=== PATIENT | male | born 1975 | race Caucasian/White ===

== ENCOUNTER 2021-02-23 11:24 | Inpatient (IN) | payer SELFPAY ==
[2021-02-23] VITALS (9 sets, daily range): BP systolic 113–147; BP diastolic 62–76
[~2021-02-23] VITALS: Ht 185 cm; Wt 101.0 kg
--- NOTE | 2021-02-23 11:55 | ED Abdominal Pain ---
General Stated Complaint: R SIDE ABD PAIN Source of Information: Patient Exam Limitations: No Limitations History of Present Illness Date Seen by Provider: Feb 23, 2021 Time Seen by Provider: 11:42 Initial Comments Patient is a 45-year-old male who presents to the emergency department with a chief complaint of epigastric abdominal pain starting Saturday of this week that is slowly radiated down into the right lower quadrant. Patient endorses some occasional chills, decreased appetite. He states he has not really had much to eat since Saturday. Thinks he is lost about 10 pounds. He states over the last 4 days his urine has become very dark and "stinky". No back pain. Patient states any type of movement tends to increase his pain. At rest he rates it at about a 6 or a 7". He states he has not taken anything for the pain such as hhji-ghh-bafsdoj Advil, Tylenol or aspirin. He is a little bit nauseous. Denies any troubles with bowel or bladder, no dysuria, urgency or frequency, no diarrhea, black or bloody stools. He has had no prior abdominal surgeries. All other review of systems reviewed and negative except as stated. Timing/Duration: 3-4 Days Severity/Quality: Severe, Aching Location: Epigastric Radiation: RLQ Associated Symptoms: Fever/Chills (Chills without known fever), Nausea/Vomiting (Nausea) Allergies and Home Medications Allergies Coded Allergies: Penicillins (Verified Allergy, Unknown, 02/23/21) Patient Home Medication List Home Medication List Reviewed: Yes Review of Systems Review of Systems Constitutional: see HPI EENTM: No Symptoms Reported Respiratory: No Symptoms Reported Cardiovascular: No Symptoms Reported Gastrointestinal: Abdominal Pain, Nausea, Poor Appetite Genitourinary: Other (Darker than normal urine) Musculoskeletal: no symptoms reported Skin: no symptoms reported Psychiatric/Neurological: No Symptoms Reported All Other Systems Reviewed Negative Unless Noted: Yes Physical Exam Vital Signs Vital Signs - First Documented 02/23/21 11:43 Temp 36.2 Pulse 100 Resp 18 B/P (MAP) 129/83 (98) Pulse Ox 97 Capillary Refill : Height/Weight/BMI Height: '" Weight: lbs. oz. kg; BMI Method: General Appearance: WD/WN, no apparent distress HEENT: PERRL/EOMI Respiratory: lungs clear, normal breath sounds, no respiratory distress, no accessory muscle use Cardiovascular: regular rate, rhythm, no murmur Gastrointestinal: abnormal bowel sounds (Hypoactive), distended (Mildly distended), guarding (Involuntary guarding), rebound (Right lower quadrant), tenderness (Right lower quadrant), other (Equivocal Rovsing sign) Extremities: non-tender, normal inspection, no pedal edema Neurologic/Psychiatric: alert, normal mood/affect, oriented x 3 Skin: normal color, warm/dry Progress/Results/Core Measures Results/Orders Lab Results Laboratory Tests Test 02/23/21 11:55 Range/Units White Blood Count 21.8 H 4.3-11.0 10^3/uL Red Blood Count 5.44 4.30-5.52 10^6/uL Hemoglobin 15.7 13.3-17.7 g/dL Hematocrit 48 40-54 % Mean Corpuscular Volume 88 80-99 fL Mean Corpuscular Hemoglobin 29 25-34 pg Mean Corpuscular Hemoglobin Concent 33 32-36 g/dL Red Cell Distribution Width 12.8 10.0-14.5 % Platelet Count 280 130-400 10^3/uL Mean Platelet Volume 9.9 9.0-12.2 fL Immature Granulocyte % (Auto) 1 % Neutrophils (%) (Auto) 72 42-75 % Lymphocytes (%) (Auto) 19 12-44 % Monocytes (%) (Auto) 8 0-12 % Eosinophils (%) (Auto) 0 0-10 % Basophils (%) (Auto) 0 0-10 % Neutrophils # (Auto) 15.6 H 1.8-7.8 10^3/uL Lymphocytes # (Auto) 4.0 1.0-4.0 10^3/uL Monocytes # (Auto) 1.8 H 0.0-1.0 10^3/uL Eosinophils # (Auto) 0.0 0.0-0.3 10^3/uL Basophils # (Auto) 0.1 0.0-0.1 10^3/uL Immature Granulocyte # (Auto) 0.3 H 0.0-0.1 10^3/uL Neutrophils % (Manual) 68 % Lymphocytes % (Manual) 21 % Monocytes % (Manual) 9 % Band Neutrophils 2 % Blood Morphology Comment NORMAL Sodium Level 133 L 135-145 MMOL/L Potassium Level 3.9 3.6-5.0 MMOL/L Chloride Level 97 L 98-107 MMOL/L Carbon Dioxide Level 27 21-32 MMOL/L Anion Gap 9 5-14 MMOL/L Blood Urea Nitrogen 14 7-18 MG/DL Creatinine 0.99 0.60-1.30 MG/DL Estimat Glomerular Filtration Rate 82 BUN/Creatinine Ratio 14 Glucose Level 134 H 70-105 MG/DL Calcium Level 10.2 H 8.5-10.1 MG/DL Corrected Calcium 10.2 H 8.5-10.1 MG/DL Total Bilirubin 1.3 H 0.1-1.0 MG/DL Aspartate Amino Transf (AST/SGOT) 18 5-34 U/L Alanine Aminotransferase (ALT/SGPT) 31 0-55 U/L Alkaline Phosphatase 127 40-136 U/L Total Protein 8.0 6.4-8.2 GM/DL Albumin 4.0 3.2-4.5 GM/DL My Orders Orders - CARMEN MARTINEZ MD Ed Iv/Invasive Line Start (02/23/21 11:51) Cbc With Automated Diff (02/23/21 11:51) Comprehensive Metabolic Panel (02/23/21 11:51) Ua Culture If Indicated (02/23/21 11:51) Fentanyl Inj (Sublimaze Injection) (02/23/21 12:00) Ondansetron Injection (Zofran Injectio (02/23/21 12:00) Ns Iv 1000 Ml (Sodium Chloride 0.9%) (02/23/21 12:00) Nothing By Mouth (02/23/21 Lunch) Ct Abdomen/Pelvis Wo (02/23/21 11:55) Manual Differential (02/23/21 11:55) Medications Given in ED Current Medications Medications Dose Ordered Sig/Sarah Route Start Time Stop Time Status Last Admin Dose Admin Fentanyl Citrate 50 mcg ONCE ONCE IVP 02/23/21 12:00 02/23/21 12:01 DC 02/23/21 12:04 50 MCG Ondansetron HCl 4 mg ONCE ONCE IVP 02/23/21 12:00 02/23/21 12:01 DC 02/23/21 12:05 4 MG Vital Signs/I&O 02/23/21 11:43 Temp 36.2 Pulse 100 Resp 18 B/P (MAP) 129/83 (98) Pulse Ox 97 Diagnostic Imaging Diagonstic Imaging: CT Comments [facility] [place], [place] NAME: HILL VALDOVINOS [facility] REC#: [id number] PT STATUS: REG ER : 1975 PHYSICIAN: CARMEN MARTINEZ MD ADMIT DATE: 02/23/21/ER Draft Date of Exam:02/23/21 CT ABDOMEN/PELVIS WO PROCEDURE: CT abdomen and pelvis without contrast. TECHNIQUE: Multiple contiguous axial images were obtained through the abdomen and pelvis without the use of intravenous contrast. Auto Exposure Controls were utilized during the CT exam to meet ALARA standards for radiation dose reduction. INDICATION: Abdominal pain. FINDINGS: No focal hepatic, pancreatic, adrenal gland, renal, or splenic abnormality is identified. There are multiple stones within the lumen of the gallbladder residing in the neck region without evidence of gallbladder wall thickening or pericholecystic fluid. There is extensive inflammation surrounding the enlarged appendix in the right lower quadrant. Hyperdense focus within the proximal appendix likely represents an appendicolith. There is no evidence of walled fluid collection to indicate an organized abscess. Otherwise, there is no free fluid within the abdomen or pelvis. Urinary bladder is unremarkable. IMPRESSION: 1. Acute appendicitis with significant periappendiceal inflammation. No organized abscess is detected. 2. Note is made of cholecystolithiasis without evidence of inflammation of the gallbladder. Dictated on workstation # [id number] Dict: 02/23/21 1246 Trans: 02/23/21 1253 [id number] Interpreted by: KEZIA ELKINS MD Electronically signed by: Departure Communication (Admissions) Time/Spoke to Admitting Phy: 13:[address] Rosario - will be down to see in a few minutes. Advised Clinda and flagyl Impression Primary Impression: Acute appendicitis Qualified Codes: K35.30 - Acute appendicitis with localized peritonitis, without perforation or gangrene Disposition: ADMITTED INPATIENT Condition: Stable Admissions Decision to Admit Reason: Admit from ER (General) Decision to Admit/Date: Feb 23, 2021 Time/Decision to Admit Time: 13:11 Departure-Patient Inst. Referrals: NO,LOCAL PHYSICIAN (PCP/Family) Primary Care Physician CARMEN MARTINEZ MD Feb 23, 2021 11:55
[2021-02-23] MEDS ORDERED: fentaNYL INJ 100 MCG/2 ML AMP IVP ONE (12:00)
[2021-02-23] MEDS ORDERED: ONDANSETRON 4 MG/2 ML (SDV) Z0FRAN IVP ONE (12:00)
[2021-02-23] MEDS ORDERED: NS IV 1000 ML 1,000 ML IV SCH ×2 (12:00→13:15)
[2021-02-23 12:04] LABS: BASOPHILS # (AUTO) 0.1 10^3/uL (0.0-0.1); BASOPHILS % (AUTO) 0 % (0-10); EOSINOPHILS % (AUTO) 0 % (0-10); HEMATOCRIT 48 % (40-54); HEMOGLOBIN 15.7 g/dL (13.3-17.7); LYMPHOCYTES % (AUTO) 19 % (12-44); MEAN CORPUSCULAR HEMOGLOBIN 29 pg (25-34); MEAN CORPUSCULAR HGB CONC 33 g/dL (32-36); MEAN CORPUSCULAR VOLUME 88 fL (80-99); MEAN PLATELET VOLUME 9.9 fL (9.0-12.2); MONOCYTES # (AUTO) 1.8 10^3/uL (0.0-1.0); MONOCYTES % (AUTO) 8 % (0-12); NEUTROPHILS # (AUTO) 15.6 10^3/uL (1.8-7.8); NEUTROPHILS % (AUTO) 72 % (42-75); PLATELET COUNT 280 10^3/uL (130-400); WHITE BLOOD COUNT 21.8 10^3/uL (4.3-11.0)
[2021-02-23 12:13] LABS: BAND NEUTROPHILS 2 %; LYMPHOCYTES % (MANUAL) 21 %; MONOCYTES % (MANUAL) 9 %; NEUTROPHILS % (MANUAL) 68 %; RBC MORPH NORMAL
[2021-02-23 12:15] LABS: POTASSIUM 3.9 MMOL/L (3.6-5.0)
[2021-02-23 12:16] LABS: CALCIUM 10.2 MG/DL (8.5-10.1)
[2021-02-23 12:19] LABS: BILIRUBIN,TOTAL 1.3 MG/DL (0.1-1.0)
[2021-02-23 12:20] LABS: CREATININE SERUM 0.99 MG/DL (0.60-1.30)
--- NOTE | 2021-02-23 12:53 | Diagnostic Imaging Report ---
PROCEDURE: CT abdomen and pelvis without contrast. TECHNIQUE: Multiple contiguous axial images were obtained through the abdomen and pelvis without the use of intravenous contrast. Auto Exposure Controls were utilized during the CT exam to meet ALARA standards for radiation dose reduction. INDICATION: Abdominal pain. FINDINGS: No focal hepatic, pancreatic, adrenal gland, renal, or splenic abnormality is identified. There are multiple stones within the lumen of the gallbladder residing in the neck region without evidence of gallbladder wall thickening or pericholecystic fluid. There is extensive inflammation surrounding the enlarged appendix in the right lower quadrant. Hyperdense focus within the proximal appendix likely represents an appendicolith. There is no evidence of walled fluid collection to indicate an organized abscess. Otherwise, there is no free fluid within the abdomen or pelvis. Urinary bladder is unremarkable. IMPRESSION: 1. Acute appendicitis with significant periappendiceal inflammation. No organized abscess is detected. 2. Note is made of cholecystolithiasis without evidence of inflammation of the gallbladder. Dictated by: Dictated on workstation # [id number]
[2021-02-23] MEDS ORDERED: MIDAZOLAM 2 MG/2 ML (VERSED) VIAL ONE (13:29)
[2021-02-23] MEDS ORDERED: ONDANSETRON 4 MG/2 ML (SDV) Z0FRAN ONE (13:29)
[2021-02-23] MEDS ORDERED: SEVOFLURANE (ULTANE) 15 ML INHAL SOLN ONE ×2 (13:29→15:55)
[2021-02-23] MEDS ORDERED: ROCURONIUM 10 MG/ML 5 ML SYRINGE IV ONE (13:29)
[2021-02-23] MEDS: CLINDAMYCIN 600 MG/50 ML IVPB 50 ML IV ONE (13:29)
[2021-02-23] MEDS ORDERED: proPOfol 200 MG/20 ML (DIPRIVAN) VIAL IV ONE (13:29)
[2021-02-23] MEDS ORDERED: LIDOCAINE PF 2% 5 ML (XYLOCAINE) VIAL ONE (13:29)
[2021-02-23] MEDS ORDERED: fentaNYL INJ 100 MCG/2 ML AMP ONE ×2 (13:29→16:12)
[2021-02-23] MEDS: metroNIDAZOLE 500MG/100ML IVPB 100 ML IV ONE (13:30)
--- NOTE | 2021-02-23 13:35 | History & Physical-Surgical ---
History of Present Illness History of Present Illness Reason for visit/HPI CC: RLQ Abd pain. Seen and evaluated in ED. Patient is a 45 year old male with right lower quadrant abdominal pain. It started 4 days ago with periumbilical abdominal pain and then migrated 4 days ago. Patient moderate pain. No radiation. + nausea and hot flashes. Patient lost appetite. Movement makes worse. Laying on left side better. Had ct scan showing acute appendicitis, no per foration and has gallstones. Date of Admission T Date Seen by a Provider: Feb 23, 2021 Time Seen by a Provider: 13:32 I consulted on this patient on 02/23/21 13:30 Attending Physician Lyla Rosario DO Admitting Physician No,Local Physician Consult Allergies and Home Medications Allergies Coded Allergies: Penicillins (Verified Allergy, Unknown, 02/23/21) Patient Home Medication List Home Medication List Reviewed: Yes Past Sggwsxl-Zyskdl-[id number] Hx Patient Social History Smoking Status: Current Someday Smoker Type Used: Cigarettes Alcohol Use?: No Have you traveled recently?: No Surgeries History of Surgeries: No Respiratory History of Respiratory Disorde: No Cardiovascular History of Cardiac Disorders: No Neurological History of Neurological Disord: No Genitourinary History of Genitourinary Disor: No Gastrointestinal History of Gastrointestinal Di: No Musculoskeletal History of Musculoskeletal Dis: No Endocrine History of Endocrine Disorders: No HEENT History of HEENT Disorders: No Family Medical History Significant Family History: No Pertinent Family Hx Review of Systems Constitutional: chills, weakness EENTM: No blurred vision, No double vision Respiratory: No cough, No dyspnea on exertion Cardiovascular: No chest pain, No palpitations Gastrointestinal: abdominal pain (RLQ), nausea, vomiting Genitourinary: No decreased output, No discharge Musculoskeletal: No back pain, No joint pain Skin: No change in color, No change in hair/nails Psychiatric/Neurological: Denies Anxiety, Denies Depressed, Denies Emotional Pr oblems All Other Systems Reviewed Negative Unless Noted: Yes (Negative excepted noted.) Physical Exam Vital Signs Vital Signs - First Documented 02/23/21 11:43 Temp 36.2 Pulse 100 Resp 18 B/P (MAP) 129/83 (98) Pulse Ox 97 Capillary Refill : Less Than 3 Seconds Height, Weight, BMI Height: '" Weight: lbs. oz. kg; 29.00 BMI Method: General Appearance: No Apparent Distress (laying still in bed) HEENT: PERRL/EOMI, TMs Normal, Normal ENT Inspection Neck: Normal Inspection, Non Tender Respiratory: Chest Non Tender, No Accessory Muscle Use, No Respiratory Distress Cardiovascular: Regular Rate, Rhythm, No JVD Gastrointestinal: No Organomegaly; No Guarding; Tenderness (rlq) Rectal: Deferred Back: Normal Inspection, No CVA Tenderness Extremity: Non Tender, No Calf Tenderness Neurologic/Psychiatric: Alert, Oriented x3, No Motor/Sensory Deficits Skin: Normal Color, Warm/Dry Lymphatic: No Adenopathy Data Review Labs Laboratory Tests 02/23/21 11:55: White Blood Count 21.8H, Red Blood Count 5.44, Hemoglobin 15.7, Hematocrit 48, Mean Corpuscular Volume 88, Mean Corpuscular Hemoglobin 29, Mean Corpuscular Hemoglobin Concent 33, Red Cell Distribution Width 12.8, Platelet Count 280, Mean Platelet Volume 9.9, Immature Granulocyte % (Auto) 1, Neutrophils (%) (Auto) 72, Lymphocytes (%) (Auto) 19, Monocytes (%) (Auto) 8, Eosinophils (%) (Auto) 0, Basophils (%) (Auto) 0, Neutrophils # (Auto) 15.6H, Lymphocytes # (Auto) 4.0, Monocytes # (Auto) 1.8H, Eosinophils # (Auto) 0.0, Basophils # (Auto) 0.1, Immature Granulocyte # (Auto) 0.3H, Neutrophils % (Manual) 68, Lymphocytes % (Manual) 21, Monocytes % (Manual) 9, Band Neutrophils 2, Blood Morphology Comment NORMAL, Sodium Level 133L, Potassium Level 3.9, Chloride Level 97L, Carbon Dioxide Level 27, Anion Gap 9, Blood Urea Nitrogen 14, Creatinine 0.99, Estimat Glomerular Filtration Rate 82, BUN/Creatinine Ratio 14, Glucose Level 134H, Calcium Level 10.2H, Corrected Calcium 10.2H, Total Bilirubin 1.3H, Aspartate Amino Transf (AST/SGOT) 18, Alanine Aminotransferase (ALT/SGPT) 31, Alkaline Phosphatase 127, Total Protein 8.0, Albumin 4.0 Assessment/Plan Assessment/Plan Admission Diagonsis rlq abd pain nausea acute appendicitis gallstones Admission Status: Other (Same Day Surgery) Assessment/Plan rlq abd pain nausea acute appendicitis gallstones discussed risks and benefits of laparoscopic appendectomy all other indicated procedures and wishes to proceed. to or Clindamycin/Flagyl NPO IV hydratino. LYLA ROSARIO DO Feb 23, 2021 13:35
[2021-02-23 13:43] LABS: CLARITY,URINE CLEAR; COLOR,URINE YELLOW; GLUCOSE, URINE (UA) TRACE (NEGATIVE); KETONES,URINE NEGATIVE (NEGATIVE); LEUKOCYTE ESTERASE ,URINE NEGATIVE (NEGATIVE); NITRITE,URINE NEGATIVE (NEGATIVE); PROTEIN,URINE 1+ (NEGATIVE)
[2021-02-23] MEDS ORDERED: LIDOCAINE/EPI 1%-1:100,000 (XYLOCAINE) 20ML ONE (14:04)
[2021-02-23] MEDS: LACTATED RINGERS 1,000 ML IV PRN ×2 (14:09→15:09)
[2021-02-23 14:28] LABS: BILIRUBIN,URINE 2+ (NEGATIVE)
[2021-02-23 14:29] LABS: BACTERIA,URINE TRACE /HPF; WBC,URINE 0-2 /HPF
[2021-02-23 14:30] LABS: AMORPHOUS SEDIMENT,UR FEW AMOR URATES /LPF
[2021-02-23] MEDS ORDERED: GLYCOPYRROLATE 0.2 MG/ML (ROBINUL) 2 ML VIAL ONE (16:19)
[2021-02-23] MEDS ORDERED: NEOSTIGMINE 3 MG/3 ML VIAL ONE (16:19)
[2021-02-23] MEDS ORDERED: morphine INJ 10 MG/ML 1ML (SYR OR VIAL) IVP ONE (16:30)
[2021-02-23] MEDS ORDERED: ONDANSETRON 4 MG/2 ML (SDV) Z0FRAN IVP PRN (16:30)
[2021-02-23] MEDS ORDERED: MEPERIDINE (DEMEROL) INJ 50 MG/ML IVP ONE (16:30)
--- NOTE | 2021-02-23 16:31 | Anesthesia-General Post-Op ---
General Patient Condition Mental Status/LOC: Same as Preop Cardiovascular: Satisfactory Nausea/Vomiting: Absent Respiratory: Satisfactory Pain: Controlled Complications: Absent Post Op Complications Complications None Follow Up Care/Instructions Patient Instructions None needed. Anesthesia/Patient Condition Patient Condition Patient is doing well, no complaints, stable vital signs, no apparent adverse anesthesia problems. No complications reported per nursing. SUE DELACRUZ CRNA Feb 23, 2021 16:31
[2021-02-23] MEDS ORDERED: morphine INJ 4 MG/ML 1 ML (VIAL/SYRINGE) IVP PRN (17:00)
--- NOTE | 2021-02-23 17:11 | Progress Note-Post Operative ---
Post-Operative Progess Note Surgeon (s)/Church History Professor (s) Surgeon LYLA HERNANDEZ DO Church History Professor: na Pre-Operative Diagnosis acute appendicitis Post-Operative Diagnosis perforated appendicitis Procedure & Operative Findings Date of Procedure 02/23/21 Procedure Performed/Findings PROCEDURE: Laparoscopic appendectomy. COMPLICATIONS: None. INDICATIONS: The patient is a 45 year old male who has been having right lower quadrant abdominal pain. Patient's exam consistent with appendicitis. I discussed risk and benefits of laparoscopic appendectomy and all indicated procedures with the possibility being a normal appendix. The patient understands the risks and benefits and wishes to proceed. Consent was signed on the chart. DESCRIPTION OF PROCEDURE: The patient was taken to the operating suite, prepped and draped in a sterile fashion. Timeout was performed. Local anesthetic was infiltrated just above the umbilicus and 11-blade scalpel was used to make a skin incision. Cautery was used to dissect down to the fascia and scored. Kochers were used to grasp and elevate it and the abdomen was then entered. A 0 Vicryl was placed in a uiirvl-[id number]-gdfep fashion for closure at the end of the case. The balloon trocar was inserted into the abdomen and pneumoperitoneum was achieved. Under direct visualization of the laparoscope, a 5 mm trocar was placed in the suprapubic region and a 5 mm trocar was placed in the left lower quadrant. Appendix was located, Large phegmon inflammed and perforated appendix. The appendix was signicantly adhered to surrounding tissues. As being lifted, a walled off collection of purulent material erupted. Area was irrigated and suctioned. The appendix was then slowly dissected out of phlegmon using blunt and ligasure dissection. Area of perforation was were an appendicolith was present. The base of the appendix was dissected around. The suprapubic port was converted to a 12 mm trocar. Once at the base an Endo- JAN 2.5 stapler was then fired across the base of the appendix. The mesoappendix was then divided the rest of the way with ligasure. It was then placed in an Endobag and removed through the 12 mm trocar site. The abdomen was then irrigated and suctioned. No other pathology noted. A 19 piotr drain was placed in the abdomen at cecum and right gutter. Brought out through the suprapubic port and secured with 3-0 vicryl suture. The abdomen was then desufflated and the trocars were removed. The 0 Vicryl placed at the beginning of the case was then tied closing the 12 mm fascial defect. The skin was then closed using 4-0 Monocryl in a subcuticular fashion. The abdomen was then washed and dried and Skin Affix was placed over the incisions. The patient tolerated the procedure well without any complications and was taken to the recovery room in stable condition. Anesthesia Type general Estimated Blood Loss Estimated blood loss (mL): minimal Specimens/Packing Specimens Removed appendix LYLA HERNANDEZ DO Feb 23, 2021 17:11
[2021-02-23] MEDS: LACTATED RINGERS 1,000 ML IV SCH ×2 (17:19→21:11)
[2021-02-23] MEDS ORDERED: CATHETER FLUSH 10 ML SYR IV PRN (17:45)
[2021-02-23] MEDS: HYDROcodone/APAP 5 MG/325 MG (LORTAB) TAB PO PRN ×2 (17:48→21:57)
[2021-02-23] MEDS: CIPROFLOXACIN IV 400MG/200ML 200 ML IV SCH (21:57)
[2021-02-23] MEDS: metroNIDAZOLE 500MG/100ML IVPB 100 ML IV SCH (23:24)
[2021-02-24 03:52] VITALS: BP 113/73
[2021-02-24] MEDS: LACTATED RINGERS 1,000 ML IV SCH ×3 (06:20→17:51)
[2021-02-24] MEDS: metroNIDAZOLE 500MG/100ML IVPB 100 ML IV SCH ×3 (06:20→21:11)
[2021-02-24 07:20] VITALS: BP 117/65
[2021-02-24] MEDS: CIPROFLOXACIN IV 400MG/200ML 200 ML IV SCH ×2 (08:47→21:11)
[2021-02-24] MEDS: CLINDAMYCIN 600 MG/50 ML IVPB 50 ML IV ONE (11:14)
[2021-02-24] MEDS: metroNIDAZOLE 500MG/100ML IVPB 100 ML IV ONE (11:15)
[2021-02-24 11:20] VITALS: BP 141/82
--- NOTE | 2021-02-24 14:19 | Progress Note - Surgery ---
EMILI ESQUIVEL 02/24/21 1419: Subjective Date Seen by a Provider: Feb 24, 2021 Time Seen by a Provider: 07:00 Subjective/Events-last exam Patient feels well this morning following his appendectomy yesterday. He reports no nausea/vomiting, no sweats/chills, no uncontrolled abdominal pain and no pain with urination. He has not had a bowel movement post-op. Objective Exam Vital Signs Date Time Temp Pulse Resp B/P (MAP) Pulse Ox O2 Delivery O2 Flow Rate FiO2 02/24/21 09:00 Nasal Cannula 2.00 02/24/21 07:20 36.4 78 18 117/65 (82) 94 Room Air 02/24/21 03:52 37.0 76 18 113/73 (86) 91 Room Air 02/23/21 23:27 37.2 86 18 121/71 (88) 93 Nasal Cannula 2.00 02/23/21 21:00 Nasal Cannula 2.00 02/23/21 20:40 37.1 83 20 116/62 (80) 95 Nasal Cannula 2.00 02/23/21 19:32 Nasal Cannula 2.00 02/23/21 18:08 Nasal Cannula 2.00 02/23/21 17:41 36.6 79 22 135/65 (88) 94 Nasal Cannula 2.00 02/23/21 17:10 Nasal Cannula 2 02/23/21 17:10 36.4 18 115/72 (86) 95 Nasal Cannula 2 02/23/21 17:02 Nasal Cannula 2 02/23/21 17:00 18 128/76 (93) 94 Nasal Cannula 2 02/23/21 16:54 Nasal Cannula 2 02/23/21 16:51 OxyMask 3 02/23/21 16:50 18 113/68 (83) 94 OxyMask 3 02/23/21 16:46 OxyMask 3 02/23/21 16:40 18 147/75 (99) 100 OxyMask 6 02/23/21 16:36 OxyMask 6 02/23/21 16:30 18 129/68 (88) 99 OxyMask 6 02/23/21 16:25 36.2 16 129/66 (87) 97 OxyMask 6 02/23/21 16:25 OxyMask 6 02/23/21 14:25 36.2 100 18 129/83 97 I & O 02/24/21 07:00 Intake Total 3230 ml Output Total 2300 ml Balance 930 ml Capillary Refill : Less Than 3 Seconds General Appearance: No Apparent Distress (laying still in bed) HEENT: PERRL/EOMI Neck: Normal Inspection, Non Tender Respiratory: Chest Non Tender, No Accessory Muscle Use, No Respiratory Distress Cardiovascular: Regular Rate, Rhythm, No JVD Gastrointestinal: non tender, soft, other (Equivocal Rovsing sign) Extremity: Non Tender, No Calf Tenderness Neurologic/Psychiatric: Alert, Oriented x3, No Motor/Sensory Deficits Skin: Normal Color, Warm/Dry Lymphatic: No Adenopathy Assessment/Plan Assessment/Plan Assessment/Plan rlq abd pain nausea acute appendicitis gallstones 02/24 Status post-op appendectomy for ruptured appendicitis Clear liquids only. LYLA ROSARIO DO 02/24/21 1549: Subjective Subjective/Events-last exam Tolerating liquds. Using IS some. Pain controlled. Passing flatus. Drain serous/murky. Denies fever sweats chills shortness of breath or chest pain. On clears. Objective Exam General Appearance: No Apparent Distress (laying still in bed) HEENT: PERRL/EOMI Neck: Normal Inspection, Non Tender Respiratory: Chest Non Tender, No Accessory Muscle Use, No Respiratory Distress Cardiovascular: Regular Rate, Rhythm, No JVD Gastrointestinal: distended (mild) Extremity: Non Tender, No Calf Tenderness Neurologic/Psychiatric: Alert, Oriented x3, No Motor/Sensory Deficits Skin: Normal Color, Warm/Dry Lymphatic: No Adenopathy Assessment/Plan Assessment/Plan Assessment/Plan rlq abd pain nausea acute appendicitis gallstones Status post-op appendectomy for ruptured appendicitis with drain placement On cipro/flagyl Clear liquids Instructed to use IS 10 x per hr repeat labs in am ambulate tid scd's for dvt prophylaxis Supervisory-Addendum Brief Verification & Attestation Participated in pt care: history, MDM, physical Personally performed: exam, history, MDM, supervision of care Care discussed with: Medical Student Procedures: n/a Results interpretation: Verified all documentation Verification and Attestation of Medical Student E/M Service A medical student performed and documented this service in my presence. I rev iewed and verified all information documented by the medical student and made modifications to such information, when appropriate. I personally performed the physical exam and medical decision making. Lyla Rosario, Feb 24, 2021,15:49 EMILI ESQUIVEL Feb 24, 2021 14:19 LYLA ROSARIO DO Feb 24, 2021 15:49
[2021-02-24 16:00] VITALS: BP 156/76
[2021-02-24] MEDS: HYDROcodone/APAP 5 MG/325 MG (LORTAB) TAB PO PRN ×3 (16:49→21:10)
[2021-02-24 19:46] VITALS: BP 172/92
[2021-02-24 23:24] VITALS: BP 149/85
[2021-02-25] MEDS: ONDANSETRON 4 MG/2 ML (SDV) Z0FRAN IVP PRN ×2 (01:33→05:04)
[2021-02-25 03:16] VITALS: BP 137/80
[2021-02-25] MEDS: metroNIDAZOLE 500MG/100ML IVPB 100 ML IV SCH ×3 (05:05→21:33)
[2021-02-25 06:27] LABS: HEMATOCRIT 46 % (40-54); MEAN CORPUSCULAR HEMOGLOBIN 29 pg (25-34); MEAN CORPUSCULAR HGB CONC 32 g/dL (32-36); MEAN CORPUSCULAR VOLUME 89 fL (80-99); MEAN PLATELET VOLUME 10.6 fL (9.0-12.2); PLATELET COUNT 311 10^3/uL (130-400); WHITE BLOOD COUNT 14.3 10^3/uL (4.3-11.0)
[2021-02-25 06:48] LABS: CALCIUM 9.3 MG/DL (8.5-10.1)
[2021-02-25 06:53] LABS: CREATININE SERUM 0.79 MG/DL (0.60-1.30)
[2021-02-25 08:19] VITALS: BP 149/96
--- NOTE | 2021-02-25 09:29 | Progress Note - Surgery ---
GIANCARLO DE JESUS 02/25/21928: Subjective Date Seen by a Provider: Feb 25, 2021 Time Seen by a Provider: 08:00 Subjective/Events-last exam Patient is a 45 y/o male 2 days s/p appendectomy. Patient has 280 mL of drainage from his MILLY tube from 0700 to 0930. Patient has abdominal distension with mod erate-severe nausea and vomiting. Patient says he wants to go home. He is on a a liquid diet. He has not had a bowel movement since surgery but he has been able to urinate. Patient denies pain. Review of Systems General: No Chills, No Fatigue HEENT: No Head Aches, No Visual Changes Pulmonary: No Dyspnea, No Cough Cardiovascular: No: Chest Pain, Palpitations Gastrointestinal: Nausea, Vomiting, Other (Heart burn); No: Abdominal Pain Genitourinary: No Dysuria Neurological: No: Weakness Focused Exam Respiratory: Chest Non Tender, Lungs Clear, Normal Breath Sounds, No Accessory Muscle Use Cardiovascular: Regular Rate, Rhythm, No Edema, Normal Peripheral Pulses Peripheral Pulses: 2+ Dorsalis Pedis (R), 2+ Left Dors-Pedis (L), 2+ Radial Pulses (R), 2+ Radial Pulses (L) Skin: normal color, warm/dry Objective Exam Vital Signs Date Time Temp Pulse Resp B/P (MAP) Pulse Ox O2 Delivery O2 Flow Rate FiO2 02/25/21 08:19 36.7 83 18 149/96 (113) 93 Room Air 02/25/21 03:16 36.5 78 20 137/80 (99) 93 Room Air 02/24/21 23:24 37.0 80 18 149/85 (106) 92 Room Air 02/24/21 21:00 Room Air 02/24/21 19:46 37.1 72 20 172/92 (118) 93 Room Air 02/24/21 16:00 37.0 66 20 156/76 (102) 93 Room Air 02/24/21 11:20 37.2 73 18 141/82 (101) 95 Room Air I & O 02/25/21 07:00 Intake Total 3480 ml Output Total 2035 ml Balance 1445 ml Capillary Refill : Less Than 3 Seconds General Appearance: No Apparent Distress (laying still in bed) HEENT: PERRL/EOMI Neck: Normal Inspection, Non Tender Respiratory: Chest Non Tender, Lungs Clear, Normal Breath Sounds, No Accessory Muscle Use, No Respiratory Distress Cardiovascular: Regular Rate, Rhythm, Normal Peripheral Pulses Peripheral Pulses: 2+ Dorsalis Pedis (R), 2+ Left Dors-Pedis (L), 2+ Radial Pulses (R), 2+ Radial Pulses (L) Gastrointestinal: distended (mild) Extremity: Normal Capillary Refill, Non Tender, No Calf Tenderness Neurologic/Psychiatric: Alert, Oriented x3, No Motor/Sensory Deficits, Normal Mood/Affect, 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3 Assessment/Plan Assessment/Plan Assessment/Plan Assessment: 1. s/p appendectomy Plan: 1. Assess MILLY tube and continued abdominal distension with nausea and vomiting rlq abd pain nausea acute appendicitis gallstones Status post-op appendectomy for ruptured appendicitis with drain placement On cipro/flagyl Clear liquids Instructed to use IS 10 x per hr repeat labs in am ambulate tid scd's for dvt prophylaxis KRISTIAN ABBOTT DO 02/25/21 1454: Subjective Time Seen by a Provider: 11:36 Subjective/Events-last exam Pt seen and examined, states he is getting a lot of fluid out into MILLY drain. Has a little bit of abdominal distention, but states his pain is better than it was this am. N/V is also better. Had some minimal flatus yesterday, nothing today and not BM. Review of Systems General: No Chills HEENT: No Head Aches, No Visual Changes Pulmonary: No Dyspnea, No Cough Cardiovascular: No: Chest Pain, Palpitations Gastrointestinal: Nausea, Vomiting, Abdominal Pain, Other (Heart burn) Objective Exam General Appearance: Mild Distress HEENT: PERRL/EOMI Respiratory: Lungs Clear, Normal Breath Sounds, No Accessory Muscle Use, No Respiratory Distress Cardiovascular: Regular Rate, Rhythm, No Murmur Gastrointestinal: distended (mild), other (MILLY with serous fluid) Assessment/Plan Assessment/Plan Assessment/Plan S/P appendectomy now with some bloating and N/V Plan: Monitor MILLY tube and abdominal distension, fluids looks normal. His nausea and vomiting is improving; take anti-emetics and will make sure he is getting PPI. Encouraged him to ambulate and use IS. Supervisory-Addendum Brief Verification & Attestation Participated in pt care: history, MDM, physical Personally performed: exam, history, MDM, supervision of care Care discussed with: Medical Student Procedures: n/a Verification and Attestation of Medical Student E/M Service A medical student performed and documented this service. I then reviewed and verified all information documented by the medical student and made modifications to such information, when appropriate. I personally performed a physical exam, medical decision making and then discussed any differences between the notes and made revisions as necessary to create one note. Kristian Abbott , 02/25/21 , 14:54 GIANCARLO DE JESUS Feb 25, 2021 09:29 KRISTIAN ABBOTT DO Feb 25, 2021 14:54
[2021-02-25] MEDS: LACTATED RINGERS 1,000 ML IV SCH ×2 (09:38→13:47)
[2021-02-25] MEDS: CIPROFLOXACIN IV 400MG/200ML 200 ML IV SCH ×2 (09:38→20:26)
[2021-02-25 11:53] VITALS: BP 172/98
[2021-02-25 15:29] VITALS: BP 165/93
--- NOTE | 2021-02-25 16:27 | Diagnostic Imaging Report ---
INDICATION: Abdominal pain and swelling. FINDINGS: There is gaseous distention of the colon. There are also some dilated loops of small bowel. Lung bases are clear. There is no free air. IMPRESSION: Dilated loops of small bowel suspect for ileus or partial obstruction. There is gaseous distention of the colon as well. Recommend clinical correlation and follow up radiographs as warranted. Dictated by: Dictated on workstation # [id number]
--- NOTE | 2021-02-25 16:28 | Diagnostic Imaging Report ---
INDICATION: Pain and swelling. COMPARISON: Imaging of the abdomen from the same date. TECHNIQUE: Single radiograph of the chest dated February 25, 2021. FINDINGS: The cardiac silhouette is borderline enlarged. No significant pulmonary vascular congestion. The lungs are clear of focal pulmonary opacity. No pleural effusion. No pneumothorax. No acute osseous abnormality. IMPRESSION: 1. Borderline cardiomegaly without pulmonary vascular congestion. 2. Low lung volumes without focal pulmonary opacity. Dictated by: Dictated on workstation # [id number]
[2021-02-25 19:30] VITALS: BP 143/89
[2021-02-26 00:45] VITALS: BP 130/83
[2021-02-26] MEDS: LACTATED RINGERS 1,000 ML IV SCH ×3 (02:32→14:27)
[2021-02-26 03:17] VITALS: BP 139/78
[2021-02-26] MEDS: metroNIDAZOLE 500MG/100ML IVPB 100 ML IV SCH ×3 (06:41→21:10)
[2021-02-26 07:53] VITALS: BP 126/77
[2021-02-26] MEDS: CIPROFLOXACIN IV 400MG/200ML 200 ML IV SCH ×2 (08:52→21:10)
--- NOTE | 2021-02-26 09:53 | Progress Note - Surgery ---
GIANCARLO DE JESUS 02/26/21 0953: Subjective Date Seen by a Provider: Feb 26, 2021 Time Seen by a Provider: 08:10 Subjective/Events-last exam Patient is a 45 y/o male s/p appendectomy. Patient reports he is doing much better today and in much less pain. His MILLY is draining less fluid. Patient reports he had a bowel movement and has been passing gas. Patient reports normal urination. Patient has less abdominal distension. Review of Systems General: No Chills, No Fatigue HEENT: No Head Aches, No Visual Changes Pulmonary: No Dyspnea; Cough Cardiovascular: No: Chest Pain, Palpitations Gastrointestinal: No: Nausea, Vomiting, Abdominal Pain Genitourinary: No Dysuria Neurological: No: Weakness Focused Exam Respiratory: Chest Non Tender, Lungs Clear, Normal Breath Sounds, No Accessory Muscle Use, No Respiratory Distress Cardiovascular: Regular Rate, Rhythm, No Murmur, Normal Peripheral Pulses Peripheral Pulses: 2+ Radial Pulses (R), 2+ Radial Pulses (L) Skin: normal color, warm/dry Objective Exam Vital Signs Date Time Temp Pulse Resp B/P (MAP) Pulse Ox O2 Delivery O2 Flow Rate FiO2 02/26/21 07:53 36.8 81 20 126/77 (93) 92 Room Air 02/26/21 03:17 37.0 85 18 139/78 (98) 92 Room Air 02/26/21 00:45 36.5 92 18 130/83 (99) 100 Room Air 02/25/21 20:10 Room Air 02/25/21 19:30 36.7 89 18 143/89 (107) 93 Room Air 02/25/21 15:29 36.8 82 20 165/93 (117) 96 Room Air 02/25/21 11:53 36.4 82 16 172/98 (122) 95 Room Air I & O 02/26/21 07:00 Intake Total 1900 ml Output Total 1320 ml Balance 580 ml Capillary Refill : Less Than 3 Seconds General Appearance: No Apparent Distress, WD/WN, Mild Distress HEENT: PERRL/EOMI Neck: Normal Inspection, Non Tender Respiratory: Chest Non Tender, Lungs Clear, Normal Breath Sounds, No Accessory Muscle Use, No Respiratory Distress Cardiovascular: Regular Rate, Rhythm, No Murmur Peripheral Pulses: 2+ Radial Pulses (R), 2+ Radial Pulses (L) Gastrointestinal: normal bowel sounds, distended (mild, less than yesterday), other (MILLY with serous fluid) Extremity: Normal Capillary Refill, Non Tender Neurologic/Psychiatric: Alert, Oriented x3, No Motor/Sensory Deficits, Normal Mood/Affect, 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 His nausea and vomiting is greatly improving; take anti-emetics and will make sure he is getting PPI. Encouraged him to ambulate and use IS. KRISTIAN ABBOTT DO 02/26/21 1536: Subjective Time Seen by a Provider: 15:01 Subjective/Events-last exam Pt seen and examined, states he is doing much better today. Less pain, +BM and flatus. He is hungry and wants to eat. Review of Systems General: No Chills Pulmonary: No Dyspnea; Cough Cardiovascular: No: Chest Pain, Palpitations Gastrointestinal: No: Nausea, Vomiting, Abdominal Pain Objective Exam General Appearance: No Apparent Distress, WD/WN Respiratory: Lungs Clear, Normal Breath Sounds, No Accessory Muscle Use, No Respiratory Distress Cardiovascular: Regular Rate, Rhythm, No Murmur Gastrointestinal: normal bowel sounds, distended (mild, less than yesterday), other (MILLY with serous fluid, incisions c/d/i) Assessment/Plan Assessment/Plan Assessment/Plan S/P appendectomy now with some bloating and N/V Abdominal distension is improved, AAS looked like an ileus yesterday; will restart clears. His nausea and vomiting is greatly improving; take anti-emetics and will make sure he is getting PPI. Encouraged him to ambulate and use IS. Supervisory-Addendum Brief Verification & Attestation Participated in pt care: history, MDM, physical Personally performed: exam, history, MDM, supervision of care Care discussed with: Medical Student Procedures: n/a Verification and Attestation of Medical Student E/M Service A medical student performed and documented this service. I then reviewed and verified all information documented by the medical student and made modif ications to such information, when appropriate. I personally performed a physical exam, medical decision making and then discussed any differences between the notes and made revisions as necessary to create one note. Kristian Abbott , 02/26/21 , 15:36 GIANCARLO DE JESUS Feb 26, 2021 09:53 KRISTIAN ABBOTT DO Feb 26, 2021 15:36
[2021-02-26 11:37] VITALS: BP 133/78
[2021-02-26 16:00] VITALS: BP 139/77
[2021-02-26 19:45] VITALS: BP 164/79
[2021-02-27 00:12] VITALS: BP 158/78
[2021-02-27] MEDS: LACTATED RINGERS 1,000 ML IV SCH ×3 (01:06→12:17)
[2021-02-27 04:00] VITALS: BP 156/78
[2021-02-27] MEDS: metroNIDAZOLE 500MG/100ML IVPB 100 ML IV SCH ×2 (05:24→13:09)
--- NOTE | 2021-02-27 07:54 | Progress Note - Surgery ---
EMILI ESQUIVEL 02/27/21 0754: Subjective Date Seen by a Provider: Feb 27, 2021 Time Seen by a Provider: 07:40 Subjective/Events-last exam Patient feels well this morning. He reports no abdominal pain, no N/V, no constipation or diarrhea. He has had 2 bowel movements since the surgery and has been passing gas regularly. There is no blood in the stool or urine. Patient has not had any sweats or chills. He is ambulating regularly without pain or discomfort. Tolerating clears well. Objective Exam Vital Signs Date Time Temp Pulse Resp B/P (MAP) Pulse Ox O2 Delivery O2 Flow Rate FiO2 02/27/21 04:00 36.7 73 20 156/78 (104) 93 Room Air 02/27/21 00:12 36.0 80 18 158/78 (104) 94 Room Air 02/26/21 21:00 Room Air 02/26/21 19:45 36.8 73 18 164/79 (107) 97 Room Air 02/26/21 16:00 36.8 80 22 139/77 (97) 96 Room Air 02/26/21 11:37 36.6 84 20 133/78 (96) 94 Room Air 02/26/21 08:00 Room Air 02/26/21 07:53 36.8 81 20 126/77 (93) 92 Room Air I & O 02/27/21 07:00 Intake Total 1680 ml Output Total 150 ml Balance 1530 ml Capillary Refill : Less Than 3 Seconds General Appearance: No Apparent Distress, WD/WN Neck: Normal Inspection, Non Tender Respiratory: Lungs Clear, Normal Breath Sounds, No Accessory Muscle Use, No Respiratory Distress Cardiovascular: Regular Rate, Rhythm, No Murmur Peripheral Pulses: 2+ Radial Pulses (R), 2+ Radial Pulses (L) Gastrointestinal: normal bowel sounds, distended (mild, improving), other (MILLY with serous fluid, incisions c/d/i) Extremity: Normal Capillary Refill, Non Tender Neurologic/Psychiatric: Alert, Oriented x3, Normal Mood/Affect Skin: Normal Color, Warm/Dry Lymphatic: No Adenopathy Assessment/Plan Assessment/Plan Assessment/Plan S/P appendectomy Abdominal distension is improved, patient is ambulating well without pain. Tolerating clears, will start solids today and see how patient does. Continue PPI. Encouraged pt to ambulate and use IS. LYLA ROSARIO DO 02/27/212031: Subjective Subjective/Events-last exam Patient is doing well. He is tolerating diet of clear liquids. Patient with flatus and bowel movements. Patient feeling better. His abdominal distention is gone down. Patient wanting food. Denies any nausea vomiting fever sweats chills shortness of breath or chest pain at this time. Objective Exam General Appearance: No Apparent Distress, WD/WN HEENT: PERRL/EOMI, Normal ENT Inspection Neck: Normal Inspection, Non Tender Respiratory: Chest Non Tender, No Accessory Muscle Use, No Respiratory Distress Cardiovascular: Regular Rate, Rhythm, No JVD Gastrointestinal: distended (Minimal), other (MILLY with serous fluid, incisions c/d/i) Extremity: Normal Capillary Refill, Non Tender Neurologic/Psychiatric: Alert, Oriented x3 Skin: Normal Color, Warm/Dry Lymphatic: No Adenopathy Assessment/Plan Assessment/Plan Assessment/Plan Perforated appendicitis Status post laparoscopic appendectomy with drain placement Postoperative ileus Patient still improving. Patient diet to be advanced. Patient diet as tolerated will DC home. Patient appears significantly better. MILLY drain with serous fluid and still greater than 30 cc in 24 hours once less than 30 cc in 24 hours will remove. Patient instructed to follow-up with the office when that occurs so that we can remove the drain. Patient be sent home on Cipro and Flagyl for antibiotic coverage for 5 more days. Pain control and stool softeners. Patient will follow up in approximately 2 weeks. When drainage is less than 30 cc he is to call the office to have it removed at that time. Carmella ent understands. Supervisory-Addendum Brief Verification & Attestation Participated in pt care: history, MDM, physical Personally performed: exam, history, MDM, supervision of care Care discussed with: Medical Student Procedures: n/a Results interpretation: Verified all documentation Verification and Attestation of Medical Student E/M Service A medical student performed and documented this service in my presence. I reviewed and verified all information documented by the medical student and made modifications to such information, when appropriate. I personally performed the physical exam and medical decision making. Lyla Rosario, Feb 27, 2021,13:31 EMILI ESQUIVEL Feb 27, 2021 07:54 LYLA ROSARIO DO Feb 27, 2021 20:32
[2021-02-27 07:55] VITALS: BP 153/93
[2021-02-27] MEDS: CIPROFLOXACIN IV 400MG/200ML 200 ML IV SCH (08:29)
[2021-02-27 11:54] VITALS: BP 144/99
[2021-02-27] MEDS ORDERED: ACHD5005 PO (17:09)
[2021-02-27] MEDS ORDERED: DOCU-143 PO (17:09)
[2021-02-27] MEDS ORDERED: METR500T PO (17:09)
[2021-02-27] MEDS ORDERED: CIPR-225 PO (17:09)
--- NOTE | 2021-02-27 17:15 | Discharge Inst-Simple/Standard ---
Discharge Inst-Standard Discharge Medications New, Converted or Re-Newed RX: Transmitted to Pharmacy Patient Instructions/Follow Up Plan of Care/Instructions/FU: 2 weeks Marlene When drain is less than 30 mL in 24 hours, call Dr. Rosario's office for nurse to remove it. Activity as Tolerated: No Discharge Diet: Regular Diet Other Inst to Patient Follow up Appt: Make appointment for [address] Rosario When drain is less than 30 mL in 24 hours, call Dr. Rosario's office for nurse to remove it. Instructions: No lifting greater than 10 pounds. No strenuous activity. May shower in 24 hours, no tub bath or soaking. Use incentive spirometer at home as directed. No Smoking Skin/Wound Care: You have special glue over your incision that will fall off on it's own. Change dressing daily around drain, keep clean and dry. Symptoms to Report: Appetite Changes, Extremity Discoloration, Numbness/Tingling, Swelling Increased, Bleeding Excessive, Eyesight Changes, Pain Increased, Urine Color Change, Constipation(Persistent), Fever over 101 degree F, Pain/Pressure in chest, Urinating Difficulty, Cough Up/Vomit Blood, Heart Beat Irreg/Pounding, Pain/Pressure in jaw, Vaginal Bleeding Increase, Cramps in feet or legs, Lightheadedness, Pain/Pressure in shoulder, Diarrhea(Persistent), Memory Changes Suddenly, Questions/Concerns, Weight gain consecutive days, Dizziness/Fainting, Nausea/Vomiting, Shortness of Breath, Weight gain over 2 pounds If questions or concerns contact your physician Or seek help at emergency department. LYLA ROSARIO DO Feb 27, 2021 17:15
== END 2021-02-27 17:40 | disposition home or self-care (01) | DRG 339 ==
LOC: ER 11:27 → SDC 13:26 → 4TH 17:05
PROVIDERS: ADMIT Surgery; ATTEND Surgery
PROC: 0DTJ4ZZ Resection of Appendix, Percutaneous Endoscopic Approach (ICD-10-PCS; principal; 2021-02-23 14:09)
DX: K35.33 Acute appendicitis with perforation, localized peritonitis, and gangrene, with abscess (principal); K56.7 Ileus, unspecified; K80.20 Calculus of gallbladder without cholecystitis without obstruction; F17.210 Nicotine dependence, cigarettes, uncomplicated; Z88.0 Allergy status to penicillin
CPT/HCPCS: 36415; 71045; 74018; 74176; 80048; 80053; 81000; 85007; 85027; 96374; 96375